=== PATIENT | female | born 1995 | race Two or more races ===

== ENCOUNTER 2017-12-25 11:16 | Emergency (ER) | payer SELFPAY ==
--- NOTE | 2017-12-25 12:50 | ER Document Report ---
HPI - HPI Patient complains to provider of: Right foot pain Onset: Other - 2 days Onset/Duration: Sudden Pain Level: 4 Context: 22 yo female woke up with pain in dorsal lateral right foot 2 days ago. No injury. Associated Symptoms: None Exacerbated by: Walking Relieved by: Denies Similar symptoms previously: No Recently seen / treated by doctor: No - ROS ROS below otherwise negative: Yes Systems Reviewed and Negative: Yes All other systems reviewed and negative Past Medical History - General Information source: Patient - Social History Smoking Status: Never Smoker Lives with: Family Family History: Reviewed & Not Pertinent - Medical History Medical History: Negative Surgical Hx: Negative Vertical Provider Document - CONSTITUTIONAL Agree With Documented VS: Yes Exam Limitations: No Limitations - INFECTION CONTROL TRAVEL OUTSIDE OF THE [place] IN LAST 30 DAYS: No - MUSCULOSKELETAL/EXTREMETIES Musculoskeletal/Extremeties: MAEW, FROM, Tender - dorsal lateral right foot over the 5th MT - NEURO Level of Consciousness: Alert Motor/Sensory: No Motor Deficit, No Sensory Deficit - DERM Integumentary: No Rash Course - Re-evaluation Re-evalutation: 12/25/17 xray neg per rad - Vital Signs Vital signs: Temp Pulse Resp BP Pulse Ox 98.9 F 61 16 145/83 H 99 12/25/17 11:24 12/25/17 11:24 12/25/17 11:24 12/25/17 11:24 12/25/17 11:24 Procedures - Immobilization Right Foot Time completed: 13:50 Pre-Proc Neuro Vasc Exam: Normal Immobilizer type: Fabrice wrap Performed by: PCT Post-Proc Neuro Vasc Exam: Normal Alignment checked and good: Yes Discharge - Discharge Clinical Impression: Right foot pain Condition: Good Disposition: HOME, SELF-CARE Instructions: Fabrice Wrap ([facility]), Sprain ([facility]) Additional Instructions: fabriec wrap for comfort see game design instructor for follow up copy of negative imaging report Prescriptions: Ibuprofen [Motrin 600 mg Tablet] 600 mg PO Q8HP PRN #30 tablet PRN Reason: Forms: Return to Work Referrals: DILIP GALLOWAY DPM [ACTIVE STAFF] - Follow up as needed
--- NOTE | 2017-12-25 13:35 | RADIOLOGY REPORT (SQ) ---
EXAM DESCRIPTION: FOOT RIGHT COMPLETE COMPLETED DATE/TIME: 12/25/2017 1:23 pm REASON FOR STUDY: woke up with pain and swelling, base 5th MT COMPARISON: None. NUMBER OF VIEWS: Three views. TECHNIQUE: AP, lateral and oblique radiographic images acquired of the right foot. LIMITATIONS: None. FINDINGS: MINERALIZATION: Normal. BONES: No acute fracture or dislocation. No worrisome bone lesions. JOINTS: No effusions. SOFT TISSUES: No soft tissue swelling. No foreign body. OTHER: No other significant finding. IMPRESSION: NEGATIVE STUDY OF THE RIGHT FOOT. NO RADIOGRAPHIC EVIDENCE OF ACUTE INJURY. TECHNICAL DOCUMENTATION: JOB ID: [id number] [employer]- All Rights Reserved Reading location - IP/workstation name: [email or web address]
[2017-12-25 13:51] VITALS: BP 132/75
== END 2017-12-25 13:51 | disposition home or self-care (01) ==
LOC: ER 11:16
DX: M79.671 Pain in right foot (principal)
CPT/HCPCS: 99283